=== PATIENT | male | born 1975 ===

== ENCOUNTER 2018-02-27 03:37 | Emergency (ER) | payer SELFPAY ==
[2018-02-27 03:56] VITALS: RESP 20; O2SAT 99
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
[2018-02-27 06:54] VITALS: BP 125/70; PULSE 80; TEMP 98
--- NOTE | 2018-02-27 07:26 | CT ---
CT maxillofacial History: Swelling and ecchymosis to the left eye. Comparison: None available. Technique: Multiple contiguous axial images were performed through the maxillofacial region without the use of intravenous contrast. Subsequently, sagittal and coronal reformatted images were obtained. This CT exam was performed using one or more of the following dose reduction techniques: Automated exposure control, adjustment of the mA and/or kV according to patient size, and/or use of iterative reconstruction technique. Findings: Nonspecific nasal deformity seen on image 72 series 601 and image 48 series 602. Frontal and periorbital scalp soft tissue swelling ; left greater than right. Nonspecific scalp calcifications. Shotty submental, submandibular, cervical chain lymph nodes. Visualized orbits are preserved. Mild mucosal thickening of the ethmoid air cells. Right mandibular retained roots with periapical abscess involving the molar. This is seen on image 37 series 602. An additional lesion is seen involving the left mandibular 2nd premolar. Possible multifocal caries. Limited due to artifact from dental restorations. Clinical correlation. Impression: Nonspecific nasal deformities seen on image 72 series 601 and on image 48 series 602. Clinical correlation if there is concern for acute fracture at this level. Frontal and periorbital scalp soft tissue swelling. Additional findings as above. These findings were preliminarily reported at 5:34 a.m. on 02/27/[address] Nikolay Saldana from [facility].
--- NOTE | 2018-02-27 07:53 | RAD ---
Right tibia and fibula two views History: Injury. Comparison: None available. Findings: Transverse oblique fracture of the distal right fibula. Proximal portion of the tibia and fibula were not imaged on this study. Impression: Transverse oblique fracture of the distal right fibula. Proximal portion of the tibia and fibula were not imaged on this study.
--- NOTE | 2018-02-27 07:55 | RAD ---
Right ankle three views History: Ankle injury. Comparison: None available. Findings: Transverse oblique mildly displaced fracture deformity through the distal fibula. Prominent lateral malleolar soft tissue swelling. Degenerative changes in the midfoot at the dorsal aspect of the talonavicular joint space. Impression: Transverse oblique mildly displaced fracture deformity through the distal fibula. Prominent lateral malleolar soft tissue swelling. Degenerative changes in the midfoot at the dorsal aspect of the talonavicular joint space.
--- NOTE | 2018-02-27 08:31 | RAD ---
Right knee three views History: Pain and injury. Comparison: None available. Findings: Soft tissue swelling seen within the medial soft tissues of the right knee. Mild medial compartment joint space narrowing of the femorotibial joint space. Mild patellofemoral compartment joint space narrowing. No significant suprapatellar joint effusion. Impression: Soft tissue swelling seen within the medial soft tissues of the right knee. Mild medial compartment joint space narrowing of the femorotibial joint space. Mild patellofemoral compartment joint space narrowing. No significant suprapatellar joint effusion. If pain persists, consider MRI.
== END 2018-02-27 06:53 | disposition home or self-care (01) ==
LOC: C.ER 03:37
DX: S09.90XA Unspecified injury of head, initial encounter (principal); S82.891A Other fracture of right lower leg, initial encounter for closed fracture; Y08.89XA Assault by other specified means, initial encounter; Y93.01 Activity, walking, marching and hiking; Y92.89 Other specified places as the place of occurrence of the external cause

== ENCOUNTER 2018-04-27 10:55 | Emergency (ER) | payer SELFPAY ==
[2018-04-27 11:05] VITALS: BP 137/97; PULSE 58; RESP 16; TEMP 98; O2SAT 98
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
== END 2018-04-27 12:08 | disposition home or self-care (01) ==
LOC: C.ER 10:55
DX: S82.831A Other fracture of upper and lower end of right fibula, initial encounter for closed fracture (principal); X58.XXXA Exposure to other specified factors, initial encounter; Z72.0 Tobacco use

== ENCOUNTER 2018-11-05 13:17 | Emergency (ER) | payer SELFPAY ==
[2018-11-05 13:48] VITALS: O2SAT 100
[2018-11-05] MEDS ORDERED: Bacitracin 500 Units/gm Oint Foilpak UD TOP ONE (14:42)
--- NOTE | 2018-11-05 14:43 | C.PDOC ---
History Of Present Illness 42 y/o male pt with hx of varicose veins presents to the ER c/o an open ulcer on left leg with pain and swelling for x3 weeks. Pt did not take any pain medication and is unable to sleep. Pt denies fever, chills and change in sensation. Time Seen by Provider: 11/05/18 14:24 Chief Complaint (Nursing): Abnormal Skin Integrity History Per: Patient History/Exam Limitations: no limitations Onset/Duration Of Symptoms: Days (x3 weeks) Current Symptoms Are (Timing): Still Present Past Medical History Reviewed: Historical Data, Nursing Documentation, Vital Signs Vital Signs: Last Vital Signs Temp 97.2 F L 11/05/18 13:46 Pulse 69 11/05/18 13:46 Resp 20 11/05/18 13:46 BP 118/74 11/05/18 13:46 Pulse Ox 100 11/05/18 13:46 Family History: States: No Known Family Hx - Social History Hx Tobacco Use: Yes Hx Alcohol Use: Yes Hx Substance Use: Yes - Immunization History Hx Tetanus Toxoid Vaccination: Yes Hx Influenza Vaccination: No Hx Pneumococcal Vaccination: No Review Of Systems Except As Marked, All Systems Reviewed And Found Negative. Constitutional: Negative for: Fever, Chills Musculoskeletal: Positive for: Other (open left leg ulcer; pain and swelling) Neurological: Negative for: Other (change in sensation) Physical Exam - Physical Exam Appears: Non-toxic, No Acute Distress Skin: Warm, Dry Head: Normacephalic Eye(s): bilateral: Normal Inspection, EOMI Extremity: Normal ROM (x4), Swelling (with left leg open ulcer wound ), Other (varicose veins) Neurological/Psych: Oriented x3, Normal Speech ED Course And Treatment O2 Sat by Pulse Oximetry: 100 (RA) Pulse Ox Interpretation: Normal Medical Decision Making Medical Decision Making: Impression: Left leg ulcer Plans: -- Bacitracin -- Clindomycin Disposition - Disposition Referrals: [facility] [place] [facility] [Outside] [facility] [place] [Outside] Disposition: HOME/ ROUTINE Disposition Time: 16:26 Condition: GOOD Additional Instructions: Follow up with your pcp or medicine clinic in a few days and take clindamyicn and bactroban as directed. Prescriptions: Clindamycin [Cleocin] 300 mg PO Q6 #28 cap Mupirocin 2% Ointment [Bactroban Ointment] 22 gm EXT Q12 #1 tube Instructions: Varicose Veins and Other Vein Disease in the Legs Forms: [employer] (Syriac) - Clinical Impression Clinical Impression: Leg varicosity w ulcer - Scribe Statement The provider has reviewed the documentation as recorded by the Scribe Beronica Dowd Provider Attestation: All medical record entries made by the Scribe were at my direction and personally dictated by me. I have reviewed the chart and agree that the record accurately reflects my personal performance of the history, physical exam, me dical decision making, and the department course for this patient. I have also personally directed, reviewed, and agree with the discharge instructions and disposition.
[2018-11-05] MEDS ORDERED: Clindamycin 600mg/50ml NS 600 MG/50 ML BAG IVPB ONE (14:57)
[2018-11-05] MEDS ORDERED: Bacitracin 500 Units/gm Oint Foilpak UD ONE (16:12)
[2018-11-05 16:26] VITALS: BP 105/84; PULSE 88; RESP 18; TEMP 98
== END 2018-11-05 16:26 | disposition home or self-care (01) ==
LOC: C.ER 13:17
DX: I83.025 Varicose veins of left lower extremity with ulcer other part of foot (principal)